=== PATIENT | female | born 1950 | race Caucasian/White ===

== ENCOUNTER 2021-08-24 10:19 | Emergency (ER) | payer MEDICARE, SELFPAY ==
[2021-08-24] VITALS (11 sets, daily range): BP systolic 144–194; BP diastolic 71–109; PULSE 67–80; RESP 13–21; TEMP 36.2; O2SAT 95–100
--- NOTE | ~2021-08-24 | XR_ITS ---
EXAMINATION: XR chest 2V DATE: 08/24/2021 11:09 INDICATION: Palpitations. Shortness of breath. TECHNIQUE: Frontal and lateral views of the chest were obtained. COMPARISON: None. FINDINGS: The chest demonstrates clear lungs without pneumonia, pleural effusion, or pneumothorax. Th e heart size is normal. IMPRESSION: 1. No acute cardiopulmonary disease. Reviewed, dictated and finalized at location A. PLACE MANAGER
--- NOTE | 2021-08-24 10:20 | ECG_ITS ---
Measurements Intervals [place] Rate: 79 P: 40 MO: 153 QRS: 9 QRSD: 74 T: 16 QT: 380 QTc: 437 Interpretive Statements SINUS RHYTHM WITH OCCASIONAL VENTRICULAR PREMATURE COMPLEXES POSSIBLE LEFT ATRIAL ENLARGEMENT [-0.1mV P WAVE IN V1/V2] LOW QRS VOLTAGE IN PRECORDIAL LEADS [QRS DEFLECTION < 1.0 mV IN CHEST LEADS]NONSPECIFIC ST CHANGE NO PREVIOUS ECG AVAILABLE FOR COMPARISON Electronically Signed On 08-24-2021 13:21:48 NURSING STAFFING COORDINATOR by Jessica Wood M.D.
[2021-08-24 10:39] LABS: Basophils Absolute Auto 0.1 K/mm3 (0.0-0.1); Basophils Percent Auto 0.5 % (0.2-1.2); Eosinophils Absolute Auto 0.2 K/mm3 (0-0.3); Eosinophils Percent Auto 1.3 % (0-4.4); Hematocrit 48.1 % (37.0-47.0); Hemoglobin 15.7 g/dL (12.0-15.0); Immature Granulocyte Absolute 0.04 K/mm3 (0.00-0.031); Immature Granulocyte Percent A 0.3 % (0-0.5); Lymphocytes Absolute Auto 3.25 K/mm3 (0.9-3.2); Lymphocytes Percent Auto 26.2 % (18.3-44.2); Mean Corpuscular HGB Conc 32.6 g/dl (32-36); Mean Corpuscular Hemoglobin 31.2 pg (26-34); Mean Corpuscular Volume 95.4 fl (80-100); Mean Platelet Volume 10.7 fl (7.4-10.4); Monocytes Absolute Auto 1.1 K/mm3 (0.1-0.6); Monocytes Percent Auto 8.5 % (2.6-8.5); Neutrophils Absolute Auto 7.9 K/mm3 (1.3-6.7); Neutrophils Percent Auto 63.2 % (45.5-73.1); Platelet Count Result 190 k/mm3 (150-375); Red Blood Count 5.04 M/mm3 (4.2-5.4); Red Cell Distribution Width 13.6 % (11.5-14.5); White Blood Count 12.4 K/mm3 (4.5-10.0)
[2021-08-24 10:49] LABS: Prothrombin Time 12.7 Seconds (11.1-14.7)
[2021-08-24 10:50] LABS: Partial Thromboplastin Time 26.7 SECONDS (22.3-36.8)
[2021-08-24 10:59] LABS: Alanine Aminotransferase 29 U/L (4-35); Albumin Level 4.2 g/dL (3.5-5.1); Alkaline Phosphatase 99 U/L (38-126); Anion Gap 6 mmol/L (8-16); Aspartate Amino Transferase 36 U/L (14-36); Bilirubin,Total 0.3 mg/dL (0.2-1.3); Blood Urea Nitrogen 18 mg/dL (7-17); Calcium 9.3 mg/dL (8.4-10.2); Carbon Dioxide 32 mmol/L (22-30); Chloride 101 mmol/L (98-107); Estimated CRCL calculation 74 ml/min; Estimated Glomerular Filt Rate > 60; Glucose 115 mg/dL (65-110); Lipase 76 U/L (23-300); Potassium 3.9 mmol/L (3.4-5.0); Sodium 139 mmol/L (137-145)
[2021-08-24 11:09] LABS: Troponin I < 0.012 ng/mL (0.000-0.034)
--- NOTE | 2021-08-24 12:56 | ED.ARRPALP ---
HPI - Arrhythmia/Palpitations General Chief Complaint: Arrhythmia/Palpitations Stated Complaint: palpitations Time Seen by Provider: 08/24/21 12:12 Source: patient Mode of arrival: ambulatory Limitations: no limitations History of Present Illness HPI narrative: Patient 71 years old white female presented to the ED with skipping beats feeling started technical spec while at rest. Currently patient feeling much better, patient denies any chest pain or shortness of breath. History of cardiac ablation, currently on beta-hannah. Patient denies any fever, chills, nausea, vomiting. Related Data Home Medications Medication Instructions Recorded Confirmed aspirin 81 mg tablet,delayed 81 mg PO DAILY 04/22/19 02/22/21 release multivitamin 1 tablet PO DAILY 04/22/19 02/22/21 melatonin 5 mg tablet 5 mg PO ONCE PRN tablet 04/25/19 02/22/21 cholecalciferol (vitamin D3) 25 25 mcg PO DAILY 01/20/20 02/22/21 mcg (1,000 unit) capsule clindamycin phosphate 1 % lotion 1 applic TOPICAL DAILY 02/22/21 02/22/21 metronidazole 0.75 % topical gel 1 applic TOPICAL DAILY 02/22/21 02/22/21 Allergies Allergy/AdvReac Type Severity Reaction Status Date / Time No Known Allergies Allergy Verified 02/22/21 09:01 Review of Systems Review of Systems: CONSTITUTIONAL: Denies fever, chills, or sweats. EYES: Denies visual changes, redness, or discharge. ENT: Denies rhinorrhea, congestion, sore throat, or otalgia. CARDIOVASCULAR: Denies chest pain, palpitations, or edema. RESPIRATORY: Denies cough or dyspnea. GASTROINTESTINAL: Denies abdominal pain, nausea, vomiting, or diarrhea. GENITOURINARY: Denies dysuria or hematuria. SKIN: Denies rash or itching. MUSCULOSKELETAL: Denies back pain, joint pain, or myalgia. NEUROLOGIC: Denies headache, numbness, or weakness. PSYCHIATRIC: Denies anxiety or depression. [facility] Family History Family History Mother Hypertension Sibling Hypertension Father Family history of malignant neoplasm of urinary bladder, Onset Age: 81 Patient's father is Social History Social History Smoking status: Former smoker Second hand tobacco smoke exposure: No Smoking end date: 06/15/81 Alcohol intake: current Alcohol use details: socially Substance use: never Exam Narrative: General appearance: Well-developed, well-nourished Skin: Normal color Head: Normocephalic, nontraumatic Eyes: Clear conjunctiva ENT: Oropharynx normal, ears normal, nose normal Neck: Supple, nontender Chest and respiratory: Airway patent, no respiratory distress, no accessory muscle use Heart: irRegular heartbeats Abdomen: Soft, nontender, no organomegaly, quiet bowel sounds Vascular: Normal peripheral pulses, normal capillary refill. Musculoskeletal: Normal range of motion, nontender back Neurologic: Alert and oriented ?3, INFANT CHILDCARE PROVIDER is normal as tested, no gross motor deficit Course Course Emergency Course: Stable Vital Signs Vital signs: Vital Signs Temperature 36.2 C L 08/24/21 10:21 Pulse Rate 80 08/24/21 10:21 Respiratory Rate 16 08/24/21 10:21 Blood Pressure 194/109 H 08/24/21 10:21 Pulse Oximetry 100 08/24/21 10:21 Temperature 36.2 C L 08/24/21 10:21 Pulse Rate 73 08/24/21 11:36 Respiratory Rate 14 08/24/21 11:36 Blood Pressure 168/84 H 08/24/21 11:36 Pulse Oximetry 95 08/24/21 11:36 MDM - Arrhythmia/Palpitations Lab Data Result diagrams: 08/24/21 10:30 08/24/21 10:30 Labs: Lab Results 08/24/21 08/24/21 08/24/21 Range/Units 10:30 10:30 10:30 WBC 1
== END 2021-08-24 13:30 | disposition home or self-care (01) ==
PROVIDERS: Emergency Medicine; Emergency Provider Emergency Medicine; PCP Internal Medicine
DX: I49.3 Ventricular premature depolarization (principal); Z79.82 Long term (current) use of aspirin; Z87.891 Personal history of nicotine dependence; R94.31 Abnormal electrocardiogram [ECG] [EKG]
CPT/HCPCS: 36415; 71046; 80053; 83690; 84443; 84484; 85025; 85610; 85730; 93005; 99284

== ENCOUNTER 2023-05-20 03:48 | Day surgery (SDC) | payer MEDICARE, SELFPAY ==
[2023-05-05 13:10] VITALS: BMI 38.5
--- NOTE | 2023-05-18 10:41 | SUR.PREOP ---
Patient called regarding upcoming procedure. Reviewed preop instructions, appointment times, and procedure prep.
--- NOTE | 2023-05-18 10:42 | SUR.PREOP ---
Patient called regarding upcoming procedure. Message left on patient's voicemail regarding preop instructions, appointment times, and procedure prep.
[2023-05-20 11:58] VITALS: BP 161/86; PULSE 70; RESP 20; TEMP 37; O2SAT 99; BMI 37.2
[2023-05-20] MEDS: LACTATED RINGERS 1,000 ML 150 ML IV CONT (12:09)
--- NOTE | 2023-05-20 12:13 | WPDANESEPPF ---
Anes - Initial Pre Proc Eval Procedure: Operation Date: 05/20/23 13:00 Proposed Procedures p Colonoscopy - Yunior Carrillo MD Date/Time: 05/20/23 12:13 Surgeon: Yunior Carrillo MD Pre Op Diagnosis: other fecal abnormalities Patient Data Age: 72 Gender: F Height: 1.65 m Weight: 101.5 kg Last Vital Signs Temp 98.6 F 05/20/23 11:58 Pulse 70 05/20/23 11:58 Resp 20 05/20/23 11:58 BP 161/86 H 05/20/23 11:58 Pulse Ox 99 05/20/23 11:58 O2 Del Method Room Air 05/20/23 11:58 Allergies Allergy/AdvReac Type Severity Reaction Status Date / Time No Known Allergies Allergy Verified 05/20/23 11:44 Home Medications Medication Instructions Recorded Confirmed Type calcium carbonate 500 mg-vitamin 1 tablet PO DAILY #30 tabs 04/22/19 05/05/23 Rx D3 10 mcg (400 unit) tablet multivitamin (Multiple Vitamins 1 tablet PO DAILY 04/22/19 05/05/23 History tablet) cholecalciferol (vitamin D3) 25 25 mcg PO DAILY 01/20/20 05/05/23 History mcg (1,000 unit) capsule atenolol 50 mg tablet See Rx Instructions .Route 10/24/22 05/20/23 Rx .COMPLEX #90 tabs lisinopril 20 2 tablet PO DAILY #180 tabs 02/20/23 05/05/23 Rx mg-hydrochlorothiazide 12.5 mg tablet Metamucil Gummies 1 gummy PO DAILY 05/05/23 05/05/23 History azelaic acid 15 % topical gel 1 applic topical BID 05/05/23 05/05/23 History Patient hx anesthesia problems: none Family hx anesthesia problems: none Results Review: All pre-operative results and documents have been reviewed as part of the pre-operative evaluation. [facility] Family History Family History Mother Hypertension Sibling Hypertension Father Family history of malignant neoplasm of urinary bladder, Onset Age: 81 Patient's father is Social History Social History Years smoked: 10 Smoking status: Former smoker Second hand tobacco smoke exposure: No Smoking end date: 06/15/81 Alcohol intake: current Drinks per week: 4 Alcohol use details: socially Substance use: never Lack of Transportation: No Lack of Food: Never True Current Housing: I Have Housing Concerned About Future Housing: No Difficulty Paying Gas/Electric Bills: No Difficulty Paying for Meds: No Currently Unemployed: No Education: Bachelor's Degree Difficulty w/ Childcare or Family Care: No Living arrangements: with family Anes - Evsd Final PreProcedure Day of Procedure 05/20/23 12:13 Patient weight: obese Heart: regular rate and rhythm Lungs: clear to auscultation Airway: Mallampati scale class II Neurological: alert and oriented Last oral intake: >/= 8 hours ASA classification: III Emergent: no Anesthetic plan: proceed Anesthesia type and monitoring: general GIVS and standard monitoring Results Review: All pre-operative results and documents have been reviewed as part of the pre-operative evaluation. Informed Consent: The patient's anesthetic plan and its attendant risks and benefits were discussed with the patient/family/POA. Questions were solicited and answers provided to the satisfaction of the patient/family/POA.
--- NOTE | 2023-05-20 13:05 | PM.HPGS ---
History of Present Illness History of Present Illness Consent: Risks, benefits, and alternatives have been discussed and questions answered. Patient agrees to proceed with procedure. Chief complaint: other fecal abnormalities Narrative: Shae Polo is a 72 year old female with last colonoscopy 2017, recently noted change in bowel habits Review of Systems Constitutional: Constitutional: Denies headache(s) and Denies weakness Eyes: Eyes: Denies blurry vision ENT: Reports Normal hearing present, Denies headache(s) and Denies neck pain Cardiovascular: Cardiovascular: Denies chest pain and Denies dyspnea Respiratory: Respiratory: Denies dyspnea Gastrointestinal: Gastrointestinal: Reports no additional gastrointestinal complaints Genitourinary: Genitourinary: Denies dysuria Musculoskeletal: Musculoskeletal: Denies neck pain Integumentary/Breasts: Skin/Breast: Denies dry skin Neurologic: Reports Normal hearing present, Denies headache(s) and Denies weakness Psychiatric: Psychiatric: Denies anxiety Endocrine: Endocrine: Denies change in body appearance Hematologic/Lymphatic: Hematologic/Lymphatic: Denies easy bleeding Allergic/Immunologic: Allergic/Immunologic: Denies urticaria PMFSH Family History Family History Mother Hypertension Sibling Hypertension Father Family history of malignant neoplasm of urinary bladder, Onset Age: 81 Patient's father is Social History Social History Years smoked: 10 Smoking status: Former smoker Second hand tobacco smoke exposure: No Smoking end date: 06/15/81 Alcohol intake: current Drinks per week: 4 Alcohol use details: socially Substance use: never Lack of Transportation: No Lack of Food: Never True Current Housing: I Have Housing Concerned About Future Housing: No Difficulty Paying Gas/Electric Bills: No Difficulty Paying for Meds: No Currently Unemployed: No Education: Bachelor's Degree Difficulty w/ Childcare or Family Care: No Living arrangements: with family Meds Home Medications and Allergies Home Medications Medication Instructions Recorded Confirmed Type calcium carbonate 500 mg-vitamin 1 tablet PO DAILY #30 tabs 04/22/19 05/05/23 Rx D3 10 mcg (400 unit) tablet multivitamin (Multiple Vitamins 1 tablet PO DAILY 04/22/19 05/05/23 History tablet) cholecalciferol (vitamin D3) 25 25 mcg PO DAILY 01/20/20 05/05/23 History mcg (1,000 unit) capsule atenolol 50 mg tablet See Rx Instructions .Route 10/24/22 05/20/23 Rx .COMPLEX #90 tabs lisinopril 20 2 tablet PO DAILY #180 tabs 02/20/23 05/05/23 Rx mg-hydrochlorothiazide 12.5 mg tablet Metamucil Gummies 1 gummy PO DAILY 05/05/23 05/05/23 History azelaic acid 15 % topical gel 1 applic topical BID 05/05/23 05/05/23 History Allergies Allergy/AdvReac Type Severity Reaction Status Date / Time No Known Allergies Allergy Verified 05/20/23 11:44 Vital Signs Vital Signs - 24 hr 05/20/23 11:58 Temperature 98.6 F Pulse Rate 70 Respiratory Rate 20 Blood Pressure 161/86 H Pulse Oximetry 99 Oxygen Delivery Room Air Exam Const: General: comfortable and no acute distress HENMT: Face/Nose/Sinus: Normal nares present Eyes: General: appearance normal, both eyes and all related structures Neck: Neck: no JVD Resp: Auscultation: clear to auscultation bilaterally Cardio: Rate: regular rate Rhythm: regular rhythm GI: Inspection: non-distended GI Palp: Yes Soft to palpation Skin: General skin exam: normal color Neuro: General: gait normal Speech: normal speech Extrem: General: normal to inspection Psych: Mental Status: mental status grossly normal Assessment and Plan Assessment and plan (1) Change in stool caliber: Code(s): R19.5 - Other fecal abnormalities Status: Acute
[2023-05-20 13:21] VITALS: BP 95/65; PULSE 74; RESP 24; O2SAT 97
[2023-05-20 13:31] VITALS: BP 148/58; PULSE 70; RESP 17; O2SAT 99
== END 2023-05-20 13:47 | disposition home or self-care (01) ==
PROVIDERS: PCP Internal Medicine; Visit Provider Internal Medicine Gastroenterology
PROC: 0DJD8ZZ Inspection of Lower Intestinal Tract, Via Natural or Artificial Opening Endoscopic (ICD-10-PCS; CPT 45378; principal; 2023-05-20 13:00)
DX: R19.4 Change in bowel habit (principal); K57.30 Diverticulosis of large intestine without perforation or abscess without bleeding; K64.8 Other hemorrhoids; Z87.891 Personal history of nicotine dependence
CPT/HCPCS: 45378; J2704; J7120

== ENCOUNTER 2024-03-03 13:27 | Outpatient (CLI) | payer MEDICARE, SELFPAY ==
--- NOTE | ~2024-03-03 | US_ITS ---
US pelvic complete Ordering provider: Jacques Andrews DO History: . R10.2 - Pelvic and perineal pain . Comparison: None. Technique: Transabdominal ultrasound of the pelvis (Doppler ultrasound interrogation techniques used as needed for this exam.) FINDINGS: CERVIX: Normal. UTERUS: Measures 7.9x 2.5x 2.4 cm in length which is within normal limits and is anteverted. No myom etrial masses. ENDOMETRIUM: Normal in thickness measuring 4 mm. (Note: the premenopausal endometrium may measure up to 16 mm when in the secretory phase.) No endometrial masses, cysts or fluid. CUL DE SAC: No free fluid. RIGHT OVARY: Normal in size measuring 3.1x 2.2x 2.6 cm. Normal echotexture. Doppler vascular flow pre sent. LEFT OVARY: Normal in size measuring 3.8x 1.6x 2.3 cm. Normal echotexture. Doppler vascular flow pres ent. ADNEXA: Normal. No mass. IMPRESSION: normal pelvic ultrasound. Reviewed, dictated and finalized at location A. IMPRESSION: normal pelvic ultrasound.
== END 2024-03-03 13:28 | disposition home or self-care (01) ==
LOC: ANHIMG 13:28
PROVIDERS: PCP Internal Medicine; Visit Provider Internal Medicine
DX: R10.2 Pelvic and perineal pain (principal)
CPT/HCPCS: 76856

== ENCOUNTER 2024-05-04 08:12 | Outpatient (CLI) | payer MEDICARE, SELFPAY ==
--- NOTE | ~2024-05-04 | US_ITS ---
EXAMINATION: US abdomen limited DATE: 05/04/2024 08:30 INDICATION: Abnormal findings of blood chemistry TECHNIQUE: Multiple grayscale and Doppler ultrasound images of the abdomen were obtained. COMPARISON: None FINDINGS: The pancreatic head and body are normal in appearance. The pancreatic tail is not visualized. Liver has normal echogenicity but with coarsened echotexture and subtle liver surface nodularity suspicious for cirrhosis. There are couple small anechoic hepatic cysts the larger measuring 1.3 cm in maximal dimension. No intrahepatic biliary duct dilation suspected. Portal venous flow was seen in the hepato petal, normal direction and has normal Doppler waveform. Wall echo shadow complex with echogenic and shadowing stones along side the anterior wall of the nondistended gallbladder with shadowing obscurin g the more posterior gallbladder. The common bile duct measures 5 mm diameter which is normal. Sonogr aphic Mcginnis sign was reported as negative by the casino investigator. IMPRESSION: 1. Coarsened hepatic echotexture with subtle surface nodularity suspicious for cirrhosis. 2. Cholelithiasis without intra or extra hepatic biliary ductal dilation. Reviewed, dictated and finalized at location B. TER RELATIONS ADMINISTRATOR
== END 2024-05-04 08:13 | disposition home or self-care (01) ==
LOC: GOSHIMG 08:14
PROVIDERS: PCP Internal Medicine; Visit Provider Internal Medicine
DX: R79.89 Other specified abnormal findings of blood chemistry (principal); K80.20 Calculus of gallbladder without cholecystitis without obstruction
CPT/HCPCS: 76705

== ENCOUNTER 2024-10-13 08:47 | Outpatient (CLI) | payer MEDICARE, SELFPAY ==
--- NOTE | ~2024-10-13 | US_ITS ---
Limited Abdominal Sonogram: Real-time sonographic imaging of the right upper quadrant was performed. Clinical History: Abnormal blood chemistry findings Findings: The liver appears mildly heterogeneous with minimal nodular contour, with no evidence of s olid mass lesion or bile duct dilatation. 1.1 cm hepatic cyst present. Main portal vein demonstrates normal direction of flow. The gallbladder is probably filled with stones with extensive shadowing the gallbladder fossa. The common bile duct measures 6 mm. The visualized pancreas, aorta, and IVC are unremarkable. Impression: Probable cholelithiasis with extensive shadowing in the gallbladder fossa. Possible cirrhotic change of the liver. Reviewed, dictated and finalized at location . Impression: Probable cholelithiasis with extensive shadowing in the gallbladder fossa. Possible cirrhotic change of the liver.
== END 2024-10-13 08:48 | disposition home or self-care (01) ==
PROVIDERS: PCP Internal Medicine; Visit Provider Nurse Practitioner Family
DX: R79.89 Other specified abnormal findings of blood chemistry (principal); K76.0 Fatty (change of) liver, not elsewhere classified
CPT/HCPCS: 76705

== ENCOUNTER 2025-01-16 09:54 | Outpatient (CLI) | payer MEDICARE, SELFPAY ==
--- NOTE | ~2025-01-16 | US_ITS ---
EXAMINATION:US venous doppler LE BI INDICATION:Leg pain TECHNIQUE: Multiple grayscale, color flow and Doppler images of the right and left lower extremity de ep venous systems were obtained and reviewed. COMPARISON:No prior studies for comparison. FINDINGS: The common femoral, superficial femoral and popliteal veins demonstrate normal respiratory variation, augmentation and compressibility. Color flow is also seen within the posterior tibial, pe roneal, greater saphenous and profunda veins. IMPRESSION: 1: No lower extremity deep venous thrombosis. Reviewed, dictated and finalized at location A.
--- OUTSIDE RECORDS SUMMARY | 2025-01-16 10:14 | XMS_ITS | Encounter Summary ---
Author Organization [facility] Address [address] [place] [address] Phone Care Team Providers Care Engraver Pantograph Name Role Phone Alissa Duarte Primary Care Provider [phone] Kane Bright MD Primary Care Provider [phone] Alissa Duarte Primary Care Provider [phone] Kane Bright MD Primary Care Provider + [phone] Alissa Duarte BUSINESS ATTORNEY Unavailable [phone] Alissa Duarte Primary Care Provider [phone] Jazmín Aguirre MD PhD Unavailable [phone] MaAlissa MD PhD Unavailable Bere Soto MD PhD Unavailable [phone] Jacques Andrews DO Primary Care Provider [phone] Encounter Details Date Type Department Care Team (Latest Contact Info) Description 06/06/2013 Orders Only [facility] Scanning, Provider Social History Tobacco Use Types Packs/Day Years Used Date Smoking Tobacco: Never Assessed Comments Unknown Sex and Gender Information Value Date Recorded Sex Assigned at Not on file 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 Gender Identity Not on file Sexual Orientation Not on file documented as of this encounter Plan of Treatment Not on file documented as of this encounter Procedures Procedure Name Priority Date/Time Associated Diagnosis Comments SCAN - LABS 06/06/2013 documented in this encounter Results * SCAN - LABS (06/06/2013) us Provider Scanning Final Result documented in this encounter Visit Diagnoses Not on filedocumented in this encounter Care Teams Engraver Pantograph Relationship Specialty Start Date End Date Alissa Duarte CNS PCP - General 10/01/16 10/01/16 Kane Bright MD [address] [facility] [address] [place] [address] PCP - General 10/02/16 10/02/16 Alissa Duarte CNS PCP - General 10/03/16 10/16/16 Kane Bright MD [address] [address] PCP - General 10/17/16 12/31/16 Alissa Duarte CNS PCP - General 01/01/17 03/24/17 Jacques Andrews DO [address] [address] PCP - General Internal Medicine 02/26/24 Alissa Duarte BUSINESS ATTORNEY 10/17/16 07/03/21 Jazmín Aguirre MD PhD [address] [address] Radiation Oncologist Radiation Oncology 11/05/18 Ma, Alissa Massey MD PhD [address] [place] [address] Medical Oncologist/Eyeglass Maker Medical Oncology 11/05/18 Aft, Bere Hodges MD PhD [address] [place] [address] Referring Physician Surgical Oncology 11/05/18 documented as of this encounter
--- OUTSIDE RECORDS SUMMARY | 2025-01-16 10:14 | XMS_ITS | Encounter Summary ---
Author Organization [facility] Address [address] [address] Care Team Providers Care Motorcycle Designer Name Role Phone Alissa Duarte Primary Care Provider [phone] Kane Bright MD Primary Care Provider + [phone] Alissa Duarte Primary Care Provider [phone] Kane Bright MD Primary Care Provider + [phone] Alissa Duarte HEAVY REPAIRER Unavailable [phone] Alissa Duarte Primary Care Provider [phone] Jazmín Aguirre MD PhD Unavailable [phone] MaAlissa MD PhD Unavailable [phone] Aft, Bere Hodges MD PhD Unavailable [phone] Jacques Andrews DO Primary Care Provider [phone] Encounter Details Date Type Department Care Team (Late st Contact Info) Description 01/05/2003 Orders Only [facility] Provider, MD Tamica [address] [place] [address] Social History Tobacco Use Types Packs/Day Years Used Date Smoking Tobacco: Never Assessed Comments Unknown Sex and Gender Information Value Date Recorded Sex Assigned at Not on file 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 us Historical Provider [facility] CARDIAC SERVICES PROCE DURES Final Result * CARDIOLOGY REPORT (01/05/2003) Anatomical Region Laterality Modality Other Narrative 01/05/2003 Ordered by an unspecified provider. us Historical Provider CV CARDIAC SERVICES PROCE DURES Final Result documented in this encounter Visit Diagnoses Not on filedocumented in this encounter Care Teams Motorcycle Designer Relationship Specialty Start Date End Date Alissa Duarte CNS PCP - General 10/01/16 10/01/16 Kane Bright MD [address] [address] PCP - General 10/02/16 10/02/16 Alissa Duarte CNS PCP - General 10/03/16 10/16/16 Kane Bright MD [address] [facility] [address] [place] [address] PCP - General 10/17/16 12/31/16 Alissa Duarte CNS PCP - General 01/01/17 03/24/17 Jacques Andrews DO [address] [address] PCP - General Internal Medicine 02/26/24 Alissa Duarte CNS 10/17/16 07/03/21 Jazmín Aguirre MD PhD [address] [place], [place] [id number] Radiation Oncologist Radiation Oncology 11/05/18 Alissa Delvalle MD PhD [address] [place] [address] Medical Oncologist/Help Desk Assistant Medical Oncology 11/05/18 Aft, Bere Hodges MD PhD [address] [place] [address] Referring Physician Surgical Oncology 11/05/18 documented as of this encounter
--- OUTSIDE RECORDS SUMMARY | 2025-01-16 10:14 | XMS_ITS | Encounter Summary ---
Author Organization [facility] Address [address] [place] [address] Phone Care Team Providers Care Hypnotherapist Name Role Phone Jazmín Aguirre MD PhD Unavailable [phone] Ma, Alissa Massey MD PhD Unavailable Aft, Bere Hodges MD PhD Unavailable [phone] Jacques Andrews DO Primary Care Provider [phone] Encounter Details Date Type Department Care Team (Latest Contact Info) Description 01/29/2023 Orders Only [facility] Scanning, Provider Social History Tobacco Use Types Packs/Day Years Used Date Smoking Tobacco: Former Cigarettes 1 10.6 1 - 10/13/1978 Smokeless Tobacco: Never Comments:quit at age 28 Alcohol Use Standard Drinks/Week Comments Yes 2 (1 standard drink = 0.6 oz pur e alcohol) daily Comments No Sex and Gender Information Value Date Recorded Sex Assigned at Not on file Legal Sex 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 Gender Identity Not on file Sexual Orientation Not on file 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 Not on file Not on file documented as of this encounter Plan of Treatment Not on file documented as of this encounter Procedures Procedure Name Priority Date/Time Associated Diagnosis Comments SCAN - LABS 01/29/2023 documented in this encounter Results * SCAN - LABS (01/29/2023) us Provider Scanning Final Result documented in this encounter Visit Diagnoses Not on filedocumented in this encounter Care Teams Hypnotherapist Relationship Specialty Start Date End Date Jacques Andrews DO [address] [place] [address] PCP - General Internal Medicine 02/26/24 Jazmín Aguirre MD PhD Radiation Oncologist Radiation Oncology 11/05/18 Alissa Delvalle MD PhD Medical Oncologist/Chinese Language Professor Medical Oncology 11/05/18 Aft, Bere Hodges MD PhD Referring Physician Surgical Oncology 11/05/18 documented as of this encounter
--- OUTSIDE RECORDS SUMMARY | 2025-01-16 10:14 | XMS_ITS | Encounter Summary ---
Author Organization [facility] Address [address] [address] Care Team Providers Care Windows Software Engineer Name Role Phone Alissa Duarte Primary Care Provider [phone] Kane Bright MD Primary Care Provider + [phone] Alissa Duarte Primary Care Provider [phone] Kane Bright MD Primary Care Provider + [phone] Alissa Duarte TRAWL NET MAKER Unavailable [phone] Alissa Duarte Primary Care Provider [phone] Jazmín Aguirre MD PhD Unavailable [phone] MaAlissa MD PhD Unavailable [phone] Aft, Bere Hodges MD PhD Unavailable [phone] Jacques Andrews DO Primary Care Provider [phone] Encounter Details Date Type Department Care Team (Late st Contact Info) Description 03/09/1992 Orders Only [facility] ProviderTamica MD [address] [place] [address] Social History Tobacco Use Types Packs/Day Years Used Date Smoking Tobacco: Never Assessed Comments Unknown Sex and Gender Information Value Date Recorded Sex Assigned at Not on file Legal Sex Female 12:19 AM SENIOR SPEECH PATHOLOGIST Gender Identity Not on file Sexual Orientation Not on file documented as of this encounter Plan of Treatment Not on file documented as of this encounter Procedures Procedure Name Priority Date/Time Associated Diagnosis Comments CARDIOLOGY REPORT 03/09/1992 documented in this encounter Results * CARDIOLOGY REPORT (03/09/1992) Anatomical Region Laterality Modality Other Narrative 03/09/1992 Ordered by an unspecified provider. us Historical Provider [facility] E[facility] MCGILL Final Result documented in this encounter Visit Diagnoses Not on filedocumented in this encounter Care Teams Windows Software Engineer Relationship Specialty Start Date End Date Alissa Duarte CNS PCP - General 10/01/16 10/01/16 Kane Bright MD [address] [facility] [address] [place] [address] PCP - General 10/02/16 10/02/16 Alissa Duarte CNS PCP - General 10/03/16 10/16/16 Kane Bright MD [address] [facility] [address] [place] [address] PCP - General 10/17/16 12/31/16 Alissa Duarte CNS PCP - General 01/01/17 03/24/17 Jacques Andrews DO [address] [facility] [address] [place] [address] PCP - General Internal Medicine 02/26/24 Alissa Duarte CNS 10/17/16 07/03/21 Jazmín Aguirre MD PhD [address] [facility] [address] [place] [address] Radiation Oncologist Radiation Oncology 11/05/18 Alissa Delvalle MD PhD [address] [facility] [address] [place] [address] Medical Oncologist/Instruction Assistant Principal Medical Oncology 11/05/18 Aft, Bere Hodges MD PhD [address] [facility] [address] [place] [address] Referring Physician Surgical Oncology 11/05/18 documented as of this encounter
--- OUTSIDE RECORDS SUMMARY | 2025-01-16 10:14 | XMS_ITS | Encounter Summary ---
Author Organization [facility] Address [address] [facility] [address] [place] [address] Care Team Providers Care Master Control Engineer Name Role Phone Kane Bright MD Primary Care Provider + [phone] Alissa Duarte STORM WINDOW INSTALLER Unavailable +[phone] Alissa Duaret STORM WINDOW INSTALLER Primary Care Provider [phone] Jazmín Aguirre MD PhD Unavailable [phone] Ma, Alissa Massey MD PhD Unavailable [phone] Aft, Bere Hodges MD PhD Unavailable +[phone] Jacques Andrews DO Primary Care Provider [phone] Encounter Details Date Type Department Care Team (Late st Contact Info) Description 12/10/2016 Orders Only [facility] ProviderTamica MD [address] [place] [address] Social History Tobacco Use Types Packs/Day Years Used Date Smoking Tobacco: Never Assessed Comments Unknown Sex and Gender Information Value Date Recorded Sex Assigned at Not on file Legal Sex Female 12:19 AM SALESPERSON PARTS Gender Identity Not on file Sexual Orientation Not on file documented as of this encounter Plan of Treatment Not on file documented as of this encounter Procedures Procedure Name Priority Date/Time Associated Diagnosis Comments CARDIOLOGY REPORT 12/10/2016 documented in this encounter Results * CARDIOLOGY REPORT (12/10/2016) Anatomical Region Laterality Modality Other Narrative 12/10/2016 Ordered by an unspecified provider. Historical Provider [facility] EULOGIO ARTEM Final Result documented in this encounter Visit Diagnoses Not on filedocumented in this encounter Care Teams Master Control Engineer Relationship Specialty Start Date End Date Kane Bright MD [address] [place] [address] [address] [facility] 120 [place] [address] PCP - General 10/17/16 12/31/16 Alissa Duarte CNS [address] [place] [address] [address] [facility] [address] [place] [address] PCP - General 01/01/17 03/24/17 Jacques Andrews DO [address] [place] [address] [place] [address] PCP - General Internal Medicine 02/26/24 Alissa Duarte, STORM WINDOW INSTALLER [address] [place] [address] 10/17/16 07/03/21 Jazmín Aguirre MD PhD [address] [place] [address] [address] Radiation Oncologist Radiation Oncology 11/05/18 Alissa Delvalle MD PhD [address] [place] [address] [address] Medical Oncologist/Career Technology Teacher Medical Oncology 11/05/18 JerardotBere MD PhD [address] [place] [address] [address] [address] Referring Physician Surgical Oncology 11/05/18 documented as of this encounter
--- OUTSIDE RECORDS SUMMARY | 2025-01-16 10:14 | XMS_ITS | Encounter Summary ---
Author Organization [facility] Address [address] [address] Care Team Providers Care Beach Lifeguard Name Role Phone Alissa Duarte Primary Care Provider [phone] Kane Brihgt MD Primary Care Provider + [phone] Alissa Duarte Primary Care Provider [phone] Kane Bright MD Primary Care Provider + [phone] Alissa Duarte MARINE STRUCTURAL DESIGNER Unavailable +[phone] Alissa Duarte Primary Care Provider [phone] Jazmín Aguirre MD PhD Unavailable [phone] MaAlissa MD PhD Unavailable [phone] Aft, Bere Hodges MD PhD Unavailable [phone] Jacques Andrews DO Primary Care Provider [phone] Encounter Details Date Type Department Care Team (Late st Contact Info) Description 08/08/1999 Orders Only [facility] Provider, MD Tamica [address] [place] [address] Social History Tobacco Use Types Packs/Day Years Used Date Smoking Tobacco: Never Assessed Comments Unknown Sex and Gender Information Value Date Recorded Sex Assigned at Not on file Legal Sex Female 12:19 AM HOG SCALDER Gender Identity Not on file Sexual Orientation Not on file documented as of this encounter Plan of Treatment Not on file documented as of this encounter Procedures Procedure Name Priority Date/Time Associated Diagnosis Comments CARDIOLOGY REPORT 08/08/1999 documented in this encounter Results * CARDIOLOGY REPORT (08/08/1999) Anatomical Region Laterality Modality Other Narrative 08/08/1999 Ordered by an unspecified provider. us Historical Provider [facility] C[facility] EULOGIO MCGILL Final Result documented in this encounter Visit Diagnoses Not on filedocumented in this encounter Care Teams Beach Lifeguard Relationship Specialty Start Date End Date Alissa Duarte CNS PCP - General 10/01/16 10/01/16 Kane Bright MD [address] [facility] 120 [place] [address] PCP - General 10/02/16 10/02/16 Alissa Duarte CNS PCP - General 10/03/16 10/16/16 Kane Bright MD [address] [facility] [address] [place] [address] PCP - General 10/17/16 12/31/16 Alissa Duarte CNS PCP - General 01/01/17 03/24/17 Jacques Andrews DO [address] [facility] [address] [place] [address] PCP - General Internal Medicine 02/26/24 Alissa Duarte CNS 10/17/16 07/03/21 Jazmín Aguirre MD PhD [address] [facility] [address] [place] [address] Radiation Oncologist Radiation Oncology 11/05/18 Alissa Delvalle MD PhD [address] [facility] [address] [place] [address] Medical Oncologist/Telecommunications Engineer Medical Oncology 11/05/18 Aft, Bere Hodges MD PhD [address] [facility] [address] [place] [address] Referring Physician Surgical Oncology 11/05/18 documented as of this encounter
--- OUTSIDE RECORDS SUMMARY | 2025-01-16 10:14 | XMS_ITS | Encounter Summary ---
Author Organization [facility] Address [address] [address] Care Team Providers Care Service Officer Name Role Phone Alissa Duarte Primary Care Provider [phone] Kane Bright MD Primary Care Provider + [phone] Alissa Duarte Primary Care Provider [phone] Kane Bright MD Primary Care Provider + [phone] Alissa Duarte CONTENT ADMINISTRATOR Unavailable [phone] Alissa Duarte Primary Care Provider [phone] Jazmín Aguirre MD PhD Unavailable +[phone] MaAlissa MD PhD Unavailable [phone] Aft, Bere Hodges MD PhD Unavailable [phone] Jacques Andrews DO Primary Care Provider [phone] Encounter Details Date Type Department Care Team (Late st Contact Info) Description 03/08/1992 Orders Only [facility] ProviderTamica MD [address] [place] [address] Social History Tobacco Use Types Packs/Day Years Used Date Smoking Tobacco: Never Assessed Comments Unknown Sex and Gender Information Value Date Recorded Sex Assigned at Not on file Legal Sex Female 12:19 AM TELEVISION NEWS REPORTER Gender Identity Not on file Sexual Orientation Not on file documented as of this encounter Plan of Treatment Not on file documented as of this encounter Procedures Procedure Name Priority Date/Time Associated Diagnosis Comments CARDIOLOGY REPORT 03/08/1992 documented in this encounter Results * CARDIOLOGY REPORT (03/08/1992) Anatomical Region Laterality Modality Other Narrative 03/08/1992 Ordered by an unspecified provider. us Historical Provider CV CARDIAC SERVICES EULOGIO MCGILL Final Result documented in this encounter Visit Diagnoses Not on filedocumented in this encounter Care Teams Service Officer Relationship Specialty Start Date End Date Alissa Duarte CNS PCP - General 10/01/16 10/01/16 Kane Bright MD [address] [facility] [address] [place] [address] PCP - General 10/02/16 10/02/16 Alissa Duarte CNS PCP - General 10/03/16 10/16/16 Kane Bright MD [address] [facility] [address] [place] [address] PCP - General 10/17/16 12/31/16 Alissa Duarte CNS PCP - General 01/01/17 03/24/17 Jacques Andrews DO [address] [facility] [address] [place] [address] PCP - General Internal Medicine 02/26/24 Alissa Duarte CNS 10/17/16 07/03/21 Jazmín Aguirre MD PhD [address] [facility] [address] [place] [address] Radiation Oncologist Radiation Oncology 11/05/18 Alissa Delvalle MD PhD [address] [facility] [address] [place] [address] Medical Oncologist/Sample Cutter Medical Oncology 11/05/18 Aft, Bere Hodges MD PhD [address] [facility] [address] [place] [address] Referring Physician Surgical Oncology 11/05/18 documented as of this encounter
--- OUTSIDE RECORDS SUMMARY | 2025-01-16 10:14 | XMS_ITS | Encounter Summary ---
Author Organization [facility] Address [address] [place] [address] Care Team Providers Care Mud Jack Nozzleman Name Role Phone Alissa Duarte FIELD ARTILLERY OPERATIONS MAN Unavailable [phone] Jazmín Aguirre MD PhD Unavailable [phone] MaAlissa MD PhD Unavailable Aft, Bere Hodges MD PhD Unavailable +[phone] Jacques Andrews DO Primary Care Provider [phone] Encounter Details Date Type Department Care Team (Late st Contact Info) Description 10/21/2018 Telephone [facility] Advanced Medicine Radiation Oncology [address] [facility] [place] [address] [place] CMA Social History Tobacco Use Types Packs/Day Years Used Date Smoking Tobacco: Former Cigarettes 1 10 Smokeless Tobacco: Never Comments:quit at age 28 Alcohol Use Standard Drinks/Week Comments Yes 2 (1 standard drink = 0.6 oz pur e alcohol) daily Comments Unknown Sex and Gender Information Value Date Recorded Sex Assigned at Not on file Legal Sex Female 12:19 AM SHOT PEENING OPERATOR Gender Identity Not on file Sexual Orientation Not on file 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 Not on file Not on file documented as of this encounter Plan of Treatment Not on file documented as of this encounter Visit Diagnoses Not on filedocumented in this encounter Care Teams Mud Jack Nozzleman Relationship Specialty Start Date End Date Jacques Andrews DO [address] [facility] 21 [place] [address] PCP - General Internal Medicine 02/26/24 Alissa Duarte, FIELD ARTILLERY OPERATIONS MAN 10/17/16 07/03/21 Jazmín Aguirre MD PhD Radiation Oncologist Radiation Oncology 11/05/18 Alissa Delvalle MD PhD Medical Oncologist/Case Specialist Medical Oncology 11/05/18 Aft, Bere Hodges MD PhD Referring Physician Surgical Oncology 11/05/18 documented as of this encounter
--- OUTSIDE RECORDS SUMMARY | 2025-01-16 10:14 | XMS_ITS | Encounter Summary ---
Author Organization [facility] Address [address] [address] Care Team Providers Care Shellfish Harvester Name Role Phone Alissa Duarte Primary Care Provider [phone] Kane Bright MD Primary Care Provider + [phone] Alissa Duarte Primary Care Provider +[phone] Kane Bright MD Primary Care Provider + [phone] Alissa Duarte ESTIMATOR PRINTING Unavailable [phone] Alissa Duarte Primary Care Provider [phone] Jazmín Aguirre MD PhD Unavailable [phone] MaAlissa MD PhD Unavailable [phone] Aft, Bere Hodges MD PhD Unavailable [phone] Jacques Andrews DO Primary Care Provider [phone] Encounter Details Date Type Department Care Team (Late st Contact Info) Description 09/15/2016 Orders Only [facility] ProviderTamica MD [address] [place] [address] Social History Tobacco Use Types Packs/Day Years Used Date Smoking Tobacco: Never Assessed Comments Unknown Sex and Gender Information Value Date Recorded Sex Assigned at Not on file Legal Sex Female 12:19 AM WALLPAPER PRINTER Gender Identity Not on file Sexual Orientation Not on file documented as of this encounter Plan of Treatment Not on file documented as of this encounter Procedures Procedure Name Priority Date/Time Associated Diagnosis Comments CARDIOLOGY REPORT 09/15/2016 documented in this encounter Results * CARDIOLOGY REPORT (09/15/2016) Anatomical Region Laterality Modality Other Narrative 09/15/2016 Ordered by an unspecified provider. us Historical Provider [facility] C[facility] EULOGIO MCGILL Final Result documented in this encounter Visit Diagnoses Not on filedocumented in this encounter Care Teams Shellfish Harvester Relationship Specialty Start Date End Date Alissa Duarte CNS PCP - General 10/01/16 10/01/16 Kane Bright MD [address] [facility] [address] [place] [address] PCP - General 10/02/16 10/02/16 Alissa Duarte CNS PCP - General 10/03/16 10/16/16 Kane Bright MD [address] [facility] [address] [place] [address] PCP - General 10/17/16 12/31/16 Alissa Duarte CNS PCP - General 01/01/17 03/24/17 Jacques Andrews DO [address] [facility] [address] [place] [address] PCP - General Internal Medicine 02/26/24 Alissa Duarte CNS 10/17/16 07/03/21 Jazmín Aguirre MD PhD [address] [facility] [address] [place] [address] Radiation Oncologist Radiation Oncology 11/05/18 Alissa Delvalle MD PhD [address] [facility] [address] [place] [address] Medical Oncologist/Supervisor Asbestos Textile Medical Oncology 11/05/18 Aft, Bere Hodges MD PhD [address] [facility] [address] [place] [address] Referring Physician Surgical Oncology 11/05/18 documented as of this encounter
--- OUTSIDE RECORDS SUMMARY | 2025-01-16 10:14 | XMS_ITS | Clinical Summary ---
Author Organization [facility] Address [address] [place] [address] Care Team Providers Care Joint Runner Name Role Phone Kane Bright Primary Care Provider [phone] Edinson Russo MD Unavailable [phone] Allergies No known active allergies Medications polyethylene glycol (MIRALAX) Powder Use entire 255g bottle with 64oz of clear liquid as directed for colonoscopy prep. 255 g 7 Active lisinopril-hydr oCHLOROthiazide (PRINZIDE, ZESTORETIC) 20-12.5 MG Tablet Take 1 Tab by mouth daily. 7 Active anastrozole (ARIMIDEX) 1 MG Tablet Take 1 Tab by mouth daily. 7 Active Calcium-Vitamin D 500-125 MG-UNIT Tablet Take 1 Tab by mouth daily. Active Multiple Vitamin (MULTI-VITAMIN PO) Take by mouth. Activ e Aspirin 81 MG Tablet Take 81 mg by mouth daily. Active Naproxen Sod-Diphenhydra mine (ALEVE PM PO) Take 2 Tabs by mouth nightly. Active Immunizations Immunization Administration Dates Next Due Covid-19, Mrna, Lnp-s, PF, 1 00 mcg/0.5 mL Dose (Moderna) 08/16/2020,07/19/2020 Family History Medical History Relation Name Comments Bladder cancer Father Prostate Cancer Father Stomach Cancer Other Uncle Relation Name Status Comments Father Other Social History Tobacco Use Types Packs/Day Years Used Date Smoking Tobacco: Former Cigarettes 1.5 10 1 969 - 1978 Smokeless Tobacco: Never Alcohol Use Standard Drinks/Week Comments Yes 14 (1 standard drink = 0.6 oz pu re alcohol) Comments Unknown Sex and Gender Information Value Date Recorded Sex Assigned at Not on file Legal Sex Female 12:03 AM CDT Gender Identity Not on file Sexual Orientation Not on file Plan of Treatment Health Maintenance Due Date Last Done Comments Hepatitis C Virus (HCV) Screening 1950 TdaP Immunization 1950 Cologuard 1995 Immunochemical Fecal Occult Blood 1995 Respiratory Syncytial Virus (RSV) Immunization (Adult) (1 - Risk 60-74 years 1-dose series) 2010 SARS-COV-2 Immunization ( season) 2024 11/15/2021, 05/15/2021, 08/16/2020, Additional history exists Influenza Immunization (#1) 02/13/202503/15, 02/14/2020, 03/19/2019 Colonoscopy 02/03/2027 02/03/2017 Colorectal Cancer Screening 02/03/2027 Pneumococcal Immunization (50+ years) Completed 03/26/2020, 03/24/2019 Pneumococcal Immunization Combined Discontinued 03/26/2020, 03/24/2019 Zoster Immunization Completed 05/22/2020, 0 Hepatitis B Immunization Aged Out No longer eligible based on patient's age to complete this topic Human Papillomavirus (HPV) Immunization Aged Out No longer eligible based on patient's age to complete this topic Meningococcal Immunization (ACWY) Aged Out No longer eligible based on patient's age to complete this topic Rotavirus Immunization Aged Out No lo nger eligible based on patient's age to complete this topic Procedures Procedure Name Priority Date/Time Associated Diagnosis Comments COLONOSCOPY Routine 02/03/2017 from Last 3 Months or Most Recently Relevant to Health Maintenance Results * COLONOSCOPY (02/03/2017) Kane Bright DO PROCEDURE/MINOR SURGICAL OR DERABLES Final Result from Last 3 Months or Most Recently Relevant to Health Maintenance Insurance MEDICARE [facility] Care Teams Joint Runner Relationship Specialty Start Date End Date Kane Bright DO [address] [place] [address] PCP - General Internal Medicine 01/14/17 Edinson Russo MD [address] [place] [address] Consulting Physician Gastroenterology 02/04/17
--- OUTSIDE RECORDS SUMMARY | 2025-01-16 10:14 | XMS_ITS | Encounter Summary ---
Author Organization [facility] Address [address] [place] [address] Phone Care Team Providers Care Physician'S Assistant Name Role Phone Jazmín Aguirre MD PhD Unavailable [phone] Ma, Alissa Massey MD PhD Unavailable Aft, Bere Hodges MD PhD Unavailable Jacques Andrews DO Primary Care Provider [phone] Encounter Details Date Type Department Care Team (Latest Contact Info) Description 08/10/2023 Orders Only [facility] Scanning, Provider Social History Tobacco Use Types Packs/Day Years Used Date Smoking Tobacco: Former Cigarettes 1 10.6 1 - 10/13/1978 Passive Smoke Exposure: Past Smokeless Tobacco: Never Comments:quit at age 28 Alcohol Use Standard Drinks/Week Comments Yes 2 (1 standard drink = 0.6 oz pur e alcohol) daily Comments No Sex and Gender Information Value Date Recorded Sex Assigned at Not on file Legal Sex Female 12:19 AM WARPMAN Gender Identity Not on file Sexual Orientation Not on file 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 Not on file Not on file documented as of this encounter Plan of Treatment Not on file documented as of this encounter Procedures Procedure Name Priority Date/Time Associated Diagnosis Comments SCAN - LABS 08/10/2023 documented in this encounter Results * SCAN - LABS (08/10/2023) us Provider Scanning Final Result documented in this encounter Visit Diagnoses Not on filedocumented in this encounter Care Teams Physician'S Assistant Relationship Specialty Start Date End Date Jacques Andrews DO [address] [facility] [address] [place] [address] PCP - General Internal Medicine 02/26/24 Jazmín Aguirre MD PhD Radiation Oncologist Radiation Oncology 11/05/18 Alissa Delvalle MD PhD Medical Oncologist/Tube Laser Operator Medical Oncology 11/05/18 Aft, Bere Hodges MD PhD Referring Physician Surgical Oncology 11/05/18 documented as of this encounter
--- OUTSIDE RECORDS SUMMARY | 2025-01-16 10:14 | XMS_ITS | Encounter Summary ---
Author Organization [facility] Address [address] [address] Care Team Providers Care Rn Hyperbaric Name Role Phone Alissa Duarte Primary Care Provider [phone] Kane Bright MD Primary Care Provider + [phone] Alissa Duarte Primary Care Provider [phone] Kane Bright MD Primary Care Provider + [phone] Alissa Duarte PROCESSING ENGINEER Unavailable [phone] Alissa Duarte Primary Care Provider [phone] Jazmín Aguirre MD PhD Unavailable [phone] MaAlissa MD PhD Unavailable [phone] Aft, Bere Hodges MD PhD Unavailable [phone] Jacques Andrews DO Primary Care Provider [phone] Encounter Details Date Type Department Care Team (Late st Contact Info) Description 06/19/1992 Orders Only [facility] Provider, MD Tamica [address] [place] [id number] Social History Tobacco Use Types Packs/Day Years Used Date Smoking Tobacco: Never Assessed Comments Unknown Sex and Gender Information Value Date Recorded Sex Assigned at Not on file Legal Sex Female 12:19 AM COMPUTERIZED MACHINE FABRIC CUTTER Gender Identity Not on file Sexual Orientation Not on file documented as of this encounter Plan of Treatment Not on file documented as of this encounter Procedures Procedure Name Priority Date/Time Associated Diagnosis Comments CARDIOLOGY REPORT 06/19/1992 documented in this encounter Results * CARDIOLOGY REPORT (06/19/1992) Anatomical Region Laterality Modality Other Narrative 06/19/1992 Ordered by an unspecified provider. us Historical Provider [facility] EULOGIO MCGILL Final Result documented in this encounter Visit Diagnoses Not on filedocumented in this encounter Care Teams Rn Hyperbaric Relationship Specialty Start Date End Date Alissa Duarte CNS PCP - General 10/01/16 10/01/16 Kane Bright MD [address] [facility] [address] [place] [address] PCP - General 10/02/16 10/02/16 Alissa Duarte CNS PCP - General 10/03/16 10/16/16 Kane Bright MD [address] [facility] [address] [facility] [address] [place] [address] PCP - General 10/17/16 12/31/16 Alissa Duarte CNS PCP - General 01/01/17 03/24/17 Jacques Andrews DO [address] [place] [address] PCP - General Internal Medicine 02/26/24 Alissa Duarte CNS 10/17/16 07/03/21 Jazmín Aguirre MD PhD [address] [facility] [address] [place] [address] Radiation Oncologist Radiation Oncology 11/05/18 Alissa Delvalle MD PhD [address] [facility] [address] [place] [address] Medical Oncologist/Inspector Firearms Medical Oncology 11/05/18 Aft, Bere Hodges MD PhD [address] [facility] [address] [place] [address] Referring Physician Surgical Oncology 11/05/18 documented as of this encounter
--- OUTSIDE RECORDS SUMMARY | 2025-01-16 10:14 | XMS_ITS | Referral Summary ---
Author Organization [facility] Address [address] [place] [address] Care Team Providers Care Histology Manager Name Role Phone Jazmín Aguirre MD PhD Unavailable [phone] Ma, Alissa Massey MD PhD Unavailable Aft, Bere Hodges MD PhD Unavailable [phone] Jacques Andrews DO Primary Care Provider [phone] Allergies No known active allergies Medications lisinopril-hydr oCHLOROthiazide (PRINZIDE,ZESTO RETIC) 20-12.5 mg per tablet take 1 Tablet by oral route every day 0 0 7 Active Additional Information Patient taking differently: 2 times daily, Reported on 02/28/2022 atenolol (TENORMIN) 50 mg tabletIndicatio ns:Malignant neoplasm of areola of right breast in female, estrogen receptor positive (HCC) daily. 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 inhibitor Encounter for monitoring aromatase inhibitor the rapy 03/18/2018 Vitamin D deficiency 03/18/2018 Acne rosacea 09/24/2017 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 Multiple benign melanocytic nevi 09/24/2017 History of breast cancer 06/01/2017 Paroxysmal SVT (supraventricular tachycardia) H/O cardiac radiofrequency ablation 03/25/2017 Osteopenia 04/03/2016 Malignant neoplasm of areola of right breast in female, estrogen receptor positive 06/06/2013 Cancer Staging:Pathologic stage from 11/05/2018:Stage IA(yT1a, N0, cM0) - Signed by Vangie Cruz NP on 11/05/2018 Immunizations Immunization Administration Dates Next Due Influenza, Quad, Adjuvantated, Intramuscular 06/2019 Influenza, Quadrivalent, Kerry l Culture-based MDCK, Preservative Free, Antibiotic Free, Intramuscular 03/18/2018 Influenza, Quadrivalent, Spl it, Preservative Free, Intramuscular 03/19/2019 Influenza, Trivalent, Cell C ulture-based MDCK, Preservative Free, Antibiotic Free, Intramuscular 04/02/2017 Influenza, Trivalent, Preservative Free, Intramu scular 04/03/2016,04/05/2015 Pneumococcal Conjugate PCV 13 03/24/2019 Pneumococcal Polysaccharide PPV23 03/26/2020 ZOSTER Recombinant 02/14/2020 Social History Tobacco Use Types Packs/Day Years Used Date Smoking Tobacco: Former Cigarettes 1 10.6 1 - 10/13/1978 Passive Smoke Exposure: Past Smokeless Tobacco: Never Tobacco Cessation:Counseling Given: Not Answered Comments:quit at age 28 Alcohol Use Standard Drinks/Week Comments Yes 2 (1 standard drink = 0.6 oz pur e alcohol) daily Comments No Sex and Gender Information Value Date Recorded Sex Assigned at Not on file Legal Sex Female 12:19 AM ATMOSPHERIC TECHNICIAN Gender Identity Not on file Sexual Orientation Not on file Occupation Industry Job Start Date Job End Date [employer] for substance abuse program Not on fi le Not on file Not on file Last Filed Vital Signs Vital Sign Reading Time Taken Comments Blood Pressure 158/85 02/26/2024 9:20 AM CDT Pulse 69 02/26/2024 9:20 AM CDT Temperature 36.6 C (97.9 F) 02/26/2024 9:20 AM CDT Respiratory Rate 16 02/26/2024 9:20 AM CDT Oxygen Saturation 96% 02/26/2024 9:20 AM CDT Inhaled Oxygen Concentration - - Weight 104.1 kg (229 lb 9.6 oz) 02/26/2024 9:20 AM CDT Height 165.1 cm (5' 5) 07/30/2023 9:55 AM ATMOSPHERIC TECHNICIAN Body Mass Index 38.21 07/30/2023 9:55 AM ATMOSPHERIC TECHNICIAN Plan of Treatment Not on file Procedures Procedure Name Priority Date/Time Associated Diagnosis Comments SCREENING MAMMOGRAM BILATERAL W ISIDORO Schedule Routine, Read Routine (OP Routine) 08/01/2024 10:07 AM ATMOSPHERIC TECHNICIAN Malignant neoplasm of areola of right breast in female, estrogen receptor positive (HCC) History of breast cancer S/P lumpectomy, right breast Encounter for screening mammogram for breast cancer DEXA AXIAL SKELETON BONE DENSITY 1 OR MORE SITES Schedule Routine, Read Routine (OP Routine) 02/27/2023 10:23 AM CDT Malignant neoplasm of areola of right breast in female, estrogen receptor positive (HCC) Osteopenia, unspecified location from Last 3 Months or Most Recently Relevant to Health Maintenance Results * Screening Mammogram Bilateral W Isidoro (08/01/2024 10:07 AM ATMOSPHERIC TECHNICIAN) Anatomical Region Laterality Modality Breast Bilateral Mammography Narrative 08/02/2024 10:17 AM ATMOSPHERIC TECHNICIAN Mammogram Technique: Bilateral Digital Breast Tomosynthesis, Bilateral C-view 2D Screening mammogram. Views obtained: . Computer Aided Detection was performed. Mammogram Findings: The present examination has been compared to prior imaging studies performed at [facility] on 07/28/2022, 07/30/2023 and 08/01/2024. There are scattered areas of fibroglandular density. There are post breast conservation therapy changes in the right breast. There is no suspicious abnormality in either breast. Impression: There is no mammographic evidence of malignancy. Annual screening mammography is recommended. OVERALL FINAL ASSESSMENT: BI-RADS CATEGORY 2: Benign. Procedure Note Estephanie Castaneda MD - 08/02/2024 Mammogram Technique: Bilateral Digital Breast Tomosynthesis, Bilateral C-view 2D Screening mammogram. Views obtained: . Computer Aided Detection was performed. Mammogram Findings: The present examination has been compared to prior imaging studies performed at [facility] on 07/28/2022, 07/30/2023 and 08/01/2024. There are scattered areas of fibroglandular density. There are post breast conservation therapy changes in the right breast. There is no suspicious abnormality in either breast. Impression: There is no mammographic evidence of malignancy. Annual screening mammography is recommended. OVERALL FINAL ASSESSMENT: BI-RADS CATEGORY 2: Benign. us Shae Hearn NP IMG MAMMO PROCEDURES Final Resu lt * Dexa Axial Skeleton Bone Density 1 or 2 Site (02/27/2023 10:23 AM CDT) Anatomical Region Laterality Modality Body N/A Radiographic Maria A ging Narrative 03/02/2023 10:05 AM CDT Patient Name: Shae Polo Date of : 1950 Date of scan: 02/27/2023 Bone mineral density was performed on a Hologic Discovery Densitometer. Based on machine cross-calibration and precision studies the least significant changes of this densitometer is 0.024 g/cm2 at the spine, 0.020 g/cm2 at the total proximal femur, and 0.014g/cm2 at the forearm. HISTORY: This is a 72 y.o. postmenopausal female with a history of breast cancer and low bone mass. She reports that she quit smoking about 44 years ago. Her smoking use included cigarettes. She started smoking about 54 years ago. She has a 10.00 pack-year smoking history. She has never used smokeless tobacco. Currently on treatment with calcium, vitamin D, and diuretics and previously treated with denosumab (Prolia) and aromatase inhibitor. INDICATIONS: Menopause status and history of low bone mass. FINDINGS: BONE MINERAL DENSITY OF THE LUMBAR SPINE Bone Mineral Density (BMD) of the lumbar spine was measured from L1-L4 and the average density was calculated to be 1.015 gm/cm2. This corresponds to a T-score (standard deviations from the mean of young adults) of -0.3. When compared to the previous study of 03/02/2020 there has been a 0.040 gm/cm (4.2%) increase in bone density that is considered significant. BONE MINERAL DENSITY OF THE PROXIMAL FEMUR Bone Mineral Density (BMD) of the left hip total was found to be 0.943 gm/cm2. This corresponds to a T-score standard deviations from the mean of young adults of 0.0. Femoral neck is 0.752 gm/cm2 with a T-score (standard deviations from the mean of young adults) of -0.9. When compared to the previous study of 03/02/2020 there has been no significant changes in bone density. SUMMARY: Bone mineral density is near the young adult normal mean with no increased risk for fracture. There has been a significant increase in bone density since previous measurement. ADDITIONAL COMMENTS: Postmenopausal Women and Men Over 50: Diagnostic criteria: Osteoporosis: BMD at or below -2.5 T-score; Osteopenia (low bone mass): BMD between -1.0 and -2.5 T-score. If the patient has a history of a fragility fracture, a fracture that occurred with trauma equivalent to a fall from a standing position or less, then the diagnosis is osteoporosis regardless of bone density. The history and data sections of the bone mineral density scan were prepared by Anastasiya Oakley) EMILIA who is accredited by the International Society of Clinical Densitometry. The overall patient assessment and scan interpretation were performed by Cinda Mejia M.D. who is certified by the International Society of Clinical Densitometry. [id number] Shae Hearn MACHINE SHOP SUPERVISOR IMG DXA PROCEDURES Final Result from Last 3 Months or Most Recently Relevant to Health Maintenance Insurance MEDICARE [employer] MEDICARE BLUE CROSS MEDICARE SUPPLEMENT MEDICARE [place] MEDICARE SUPPLEMENT Care Teams Histology Manager Relationship Specialty Start Date End Date Jacques Andrews DO [address] [place], [place] [address] PCP - General Internal Medicine 02/26/24 Jazmín Aguirre MD PhD Radiation Oncologist Radiation Oncology 11/05/18 Alissa Delvalle MD PhD Medical Oncologist/Cosmetologist Apprentice Medical Oncology 11/05/18 Aft, Bere Hodges MD PhD Referring Physician Surgical Oncology 11/05/18
--- OUTSIDE RECORDS SUMMARY | 2025-01-16 10:14 | XMS_ITS | Patient Health Record ---
Author Organization [facility] Address [address] [place] [address] Care Team Providers Care Repair Tech Name Role Phone Harish Suazo Primary Care Provider Reason For Referral No Information Immunizations Vaccine Route Administration Date Status Comme nts COVID-19 Moderna 2nd IM Intramuscular 08/16/2020 Administered EUA provided. Screening and consent reviewed and signed. Pt tolerated well. COVID-19 Moderna 1ST IM Intramuscular 07/19/2020 Administered EUA provided. Screening and consent reviewed and signed. Patient tolerated well. Plan Of Treatment No Information Insurance Providers Payer Name Payer Address Payer Phone Subscriber Number Group Number Insured Name Patient Relationship to Insured Coverage Start Date Coverage End Date MEDICARE PART A [address] [place] [address] [id number] Shae Polo Self - patient is the insured 5 [facility] [place] [address] [place] [address] [id number] Shae Polo Self - patient is the insured 1
--- OUTSIDE RECORDS SUMMARY | 2025-01-16 10:14 | XMS_ITS | Encounter Summary ---
Author Organization [facility] Address 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 Mily Gonzales MD [address] [facility] [address] [place] [address] PAROX ATRIAL TACHYCARDIA (Primary Dx) Social History Tobacco Use Types Packs/Day Years Used Date Smoking Tobacco: Never Assessed Comments Unknown Sex and Gender Information Value Date Recorded Sex Assigned at Not on file Legal Sex Female 4:48 AM EXPERIENCE PLANNING STRATEGIST Gender Identity Not on file Sexual Orientation Not on file documented as of this encounter Plan of Treatment Not on file documented as of this encounter Visit Diagnoses Diagnosis Paroxysmal supraventricular tachycardia- Primary documented in this encounter
--- OUTSIDE RECORDS SUMMARY | 2025-01-16 10:14 | XMS_ITS | Clinical Summary ---
Author Organization [facility] Address [address] [place] [address] Care Team Providers Care Hotel Houseman Name Role Phone Unknown, Provider Primary Care Provider Unavaila ble Source Comments [facility],non-owned Affiliates and Associated Physician Practices is amultiple site organization consisting of ambulatory clinics and hospital sitesin [place] and [place]. This disclosure is being madepursuant to the Care Everywhere program and may not contain all informatio navailable regarding this patient. Last updated 18.[facility] Social History Tobacco Use Types Packs/Day Years Used Date Smoking Tobacco: Never Assessed Comments Unknown Sex and Gender Information Value Date Recorded Sex Assigned at Not on file Legal Sex Female 6:09 AM ORTHOPEDICS NURSE Gender Identity Not on file Sexual Orientation Not on file Plan of Treatment Health Maintenance Due Date Last Done Comments COLOGUARD (AGES 45-75) - COLON CA SCREENING 1950 COLON MONITORING 1950 COLONOSCOPY - COLON CA SCREENING 1950 CT COLONOGRAPHY - COLON CA SCREENING 1950 Colorectal Cancer Screening 1950 FIT - COLON CA SCREENING 1950 FLEX SIG - COLON CA SCREENING 1950 LIPID TESTING 1950 MEDICARE AWV 12 MONTHS 1950 HEPATITIS C SCREENING 05/28/1968 DTAP/TDAP/TD VACCINES (1 - Tdap) 1969 PNEUMOCOCCAL VACCINE 50+ (1 of 1 - PCV) 2000 ZOSTER VACCINE (1 of 2) 2000 COVID-19 VACCINE (3 - season) 2024 08/16/2020, 07/19/2020 DEPRESSION SCREENING 06/15/2024 INFLUENZA VACCINE (#1) 2025 9, 03/18/2018, 04/02/2017, Additional history exists Respiratory Syncytial Virus (RSV) Vaccine Pt: or over 60 yrs (1 - 1-dose 75+ series) 2025 MAMMOGRAM 07/30/2025 07/30/2023, 07/16, 07/28/2022, Additional history exists BONE DENSITY TESTING Completed 02/27/2023, 03/02/2020, 09/10/2017, Additional history exists HEPATITIS B VACCINE Aged Out No longe r eligible based on patient's age to complete this topic HIB VACCINE Aged Out No longer eligi ble based on patient's age to complete this topic HPV VACCINE Aged Out No longer eligi ble based on patient's age to complete this topic MENINGOCOCCAL (Group B) VACCINE SHARED DECISION-MAKING Aged Out No longer eligible based on patient's age to complete this topic MENINGOCOCCAL GROUPS A/C/Y/W VACCINE Aged Out No longer eligible based on patient's age to complete this topic Insurance MEDICARE [facility] Care Teams Hotel Houseman Relationship Specialty Start Date End Date Unknown, Provider PCP - General 05/31/24
--- OUTSIDE RECORDS SUMMARY | 2025-01-16 10:14 | XMS_ITS | Encounter Summary ---
Author Organization [facility] Address [address] [place] [address] Care Team Providers Care Stock Letterer Name Role Phone Unavailable Primary Care Provider Unavailabl e Encounter Details Date Type Department Care Team (Late st Contact Info) Description 02/14/2003 Outpatient Historical [facility] Support Serv. (Adt Cardiology-[facility]) [facility] [place] [address] David Sandoval MD [address] [place] [address] Social History Tobacco Use Types Packs/Day Years Used Date Smoking Tobacco: Never Assessed Comments Unknown Sex and Gender Information Value Date Recorded Sex Assigned at Not on file Legal Sex Female 4:48 AM SALES SUPPORT TECHNICIAN Gender Identity Not on file Sexual Orientation Not on file documented as of this encounter Plan of Treatment Not on file documented as of this encounter Visit Diagnoses Not on filedocumented in this encounter
--- OUTSIDE RECORDS SUMMARY | 2025-01-16 10:14 | XMS_ITS | Clinical Summary ---
Author Organization [facility] Address [address] Attn: Epic Prelude ADT JOHANNE SMITH [address] Care Team Providers Care Business And Services Instructor Name Role Phone Unavailable Primary Care Provider Unavailabl e Social History Tobacco Use Types Packs/Day Years Used Date Smoking Tobacco: Never Assessed Comments Unknown Sex and Gender Information Value Date Recorded Sex Assigned at Not on file Legal Sex Female 4:48 AM MENTAL HEALTH DIRECTOR Gender Identity Not on file Sexual Orientation Not on file Plan of Treatment Health Maintenance Due Date Last Done Comments DTAP/TDAP/TD VACCINES (1 - Tdap) 1969 BREAST CANCER SCREENING 1990 COLORECTAL SCREENING 1995 Colorectal Cancer Screening 1995 FIT-DNA Q 3 years 1995 FIT/FOBT Q 1 year 1995 Flex Sig/CT Colonography Q 5 years 1995 PNEUMOCOCCAL VACCINE 50+ YEARS (1 of 1 - PCV) 06/02/20 00 ZOSTER VACCINE (1 of 2) 2000 OSTEOPOROSIS SCREENING 2015 INFLUENZA VACCINE (#1) 2025 RSV VACCINE (60+ or ) (1 - 1-dose 75+ series) 2025
--- OUTSIDE RECORDS SUMMARY | 2025-01-16 10:14 | XMS_ITS | Clinical Summary ---
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 Encounter for [...] Pneumococcal Polysaccharide PPV23 03/26/2020 ZOSTER Recombinant 02/14/2020 Surgical History Surgery Date Site/Laterality Comments US UNLISTED PROCEDURE LYMPH SYSTEM 12/26/2013 N/A BREAST SURGERY 2013 Medical History Medical History Date Comments Palpitations Supraventricular tachycardia s/p cardiac ablation in 1989 and 1996 Rash and other nonspecific skin eruption Rash - (Added by TW Conv) Hypertension Overweight Cancer (HCC) breast 2013 Family History Medical History Relation Name Comments Arthritis Father [place] [facility] Bladder Cancer Father [place] [facility] of bacte remia Cancer Father [place] [facility] Prostate cancer Father [place] [facility] Breast cancer Maternal Grandmother double mastectomy Old age Maternal Grandmother at 101 Melanoma Maternal cousin age 44 metastatic melanoma Hypertension Mother [facility]i [facility] Stroke Mother [facility] benign brain tumor Mother's Sister Relation Name Status Comments Father [place] [facility] Maternal Grandmother Maternal cousin Mother [facility] Mother's Sister Son 1 Alive Son 2 Alive Social History Tobacco Use Types Packs/Day Years [...] on file Legal Sex Female 12:19 AM ROR ENGINEER Gender Identity Not on file Sexual Orientation Not on file Occupation Industry Job Start Date Job End Date [employer]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 2 para 2. First term at age 28. She experiencing her menopause at age 52. She has never used hormone replacement therapy or fertility medications. Last Filed Vital Signs Vital Sign Reading [...] 165.1 cm (5' 5) 07/30/2023 9:55 AM ROR ENGINEER Body Mass Index 38.21 07/30/2023 9:55 AM ROR ENGINEER Plan of Treatment Health Maintenance Due Date Last Done Comments Colon Cancer Screening-Colonoscopy 1950 Depression Screening 1950 Fall Risk Assessment 1950 Hepatitis C Screening 1950 DTaP/Tdap/Td Vaccine (1 - Tdap) 1961 Hepatitis B Screening 1968 Well Visit 65+ 2015 Zoster Vaccine (2 of 2) 04/10/2020 02/14/2020 Covid-19 Vaccine (3 - 2023-2 5 season) 2024 08/16/2020, 07/19/2020 Influenza Vaccine (#1) 2025 , 03/19/2019, 03/18/2018, Additional history exists Osteoporosis Screening-Bone Density Scan 02/27/2025 02/27/2023, 03/02/2020, 09/10/2017, Additional history exists Breast Cancer Screening-Mammogram 08/01/2025 08/01/2024, 07/30/2023, 07/28/2022, Additional history exists Pneumococcal vaccine 65+ Completed 03/26/2020, 03/15 Procedures Procedure Name Priority Date/Time Associated Diagnosis Comments SCREENING MAMMOGRAM BILATERAL W ISIDORO Schedule Routine, Read Routine (OP Routine) 08/01/2024 10:07 AM ROR ENGINEER Malignant neoplasm of areola of right breast [...] Mammogram Bilateral W Isidoro (08/01/2024 10:07 AM ROR ENGINEER) Anatomical Region Laterality Modality Breast Bilateral Mammography Narrative 08/02/2024 10:17 AM ROR ENGINEER Mammogram Technique: Bilateral Digital Breast Tomosynthesis, Bilateral C-view 2D Screening mammogram. Views obtained: . Computer Aided Detection was performed. Mammogram Findings: The present examination has been compared to prior imaging studies performed at [facility] on 07/28/2022, 07/30/2023 and 08/01/2024. There are [...] compared to prior imaging studies performed at [facility] on 07/28/2022, 07/30/2023 and 08/01/2024. There are [...] by the International Society of Clinical Densitometry. [id number] Shae Hearn NP [facility] DXA PROCEDURES Final Result from Last 3 Months or Most Recently Relevant to Health Maintenance Insurance MEDICARE [facility] MEDICARE [employer] MEDICARE SUPPLEMENT MEDICARE [facility] MEDICARE SUPPLEMENT Care Teams Negotiations Director Relationship Specialty Start Date End Date Jacques Andrews DO [address] [place] [address] PCP - General Internal Medicine 02/26/24 Jazmín Aguirre MD PhD Radiation Oncologist Radiation Oncology 11/05/18 Alissa Delvalle MD PhD Medical Oncologist/Cotton Agent Medical Oncology 11/05/18 Brittany, Bere Hodges MD PhD Referring Physician Surgical Oncology 11/05/18
== END 2025-01-16 09:55 | disposition home or self-care (01) ==
PROVIDERS: PCP Internal Medicine; Visit Provider Internal Medicine
DX: M79.604 Pain in right leg (principal)
CPT/HCPCS: 93970

== ENCOUNTER 2025-04-28 08:14 | Outpatient (CLI) | payer MEDICARE, SELFPAY ==
--- NOTE | ~2025-04-28 | US_ITS ---
US abdomen limited Indication: K74.60 - Unspecified cirrhosis of liver Comparison: None Technique: Paez-scale and color Doppler images were obtained. Findings: LIVER: Within the liver there are simple appearing cysts the largest right lobe liver 1.3 x 1 x 1.1 cm. . GALLBLADDER/BILIARY: Cholelithiasis, normal thickening or pericholecystic fluid. CBD normal. Iona sign negative. PANCREAS: Pancreas limited by bowel gas. Right Kidney: The right kidney was not imaged. Impression: Liver cysts. Cholelithiasis. Reviewed, dictated and finalized at location P. EXAMINER Impression: Liver cysts. Cholelithiasis.
== END 2025-04-28 08:15 | disposition home or self-care (01) ==
LOC: GOSHIMG 08:14
PROVIDERS: PCP Internal Medicine; Visit Provider Nurse Practitioner Family
DX: K74.60 Unspecified cirrhosis of liver (principal); K80.20 Calculus of gallbladder without cholecystitis without obstruction; K76.89 Other specified diseases of liver
CPT/HCPCS: 76705

== ENCOUNTER 2025-06-01 09:28 | Outpatient (CLI) | payer MEDICARE, SELFPAY ==
--- NOTE | ~2025-06-01 | XR_ITS ---
XR lumbar spine 2-3V Indication: Low back pain w/Rt sciatica Comparison: None Findings: Dextroconvex scoliosis. Moderate loss of vertebral height throughout. No fracture or subluxation. Grade 1 retrolisthesis of L1 on L2. Moderate loss of disc height throughout. Soft tissues unremarkable Impression: No acute abnormality. Reviewed, dictated and finalized at location P. M BONE PRESS TENDER Impression: No acute abnormality.
== END 2025-06-01 09:29 | disposition home or self-care (01) ==
PROVIDERS: PCP Internal Medicine; Visit Provider Internal Medicine
DX: M54.16 Radiculopathy, lumbar region (principal)
CPT/HCPCS: 72100